=== PATIENT | male | born 1955 | race American Indian/Alaskan Native ===

== ENCOUNTER 2018-07-27 18:11 | Inpatient (IN) | payer MEDICAID ==
[2018-07-27] MEDS ORDERED: Sodium Chloride 0.9% 1,000 ML IV STA (18:30)
--- NOTE | 2018-07-27 18:33 | ED PDOC ---
HPI: Altered Mental Status Time Seen by Provider: 07/27/18 18:22 Chief Complaint (Nursing): Altered Mental Status History Per: EMS Onset/Duration Of Symptoms: Unknown Current Symptoms Are (Timing): Still Present Description Of Symptoms: Confused Usual Baseline: Unknown Exacerbating Factor(s): Unknown Severity: Moderate Additional Complaint(s): Brought by EMS after pt was found wandering at [place]. Pt does not know how he got to train station. Denies head injury or fall. Denies headache or dizziness.. Denies chest pain or palpitations. Past Medical History Vital Signs: Last Vital Signs Temp 98.9 F 07/27/18 18:12 Pulse 125 H 07/27/18 18:12 Resp 16 07/27/18 18:12 BP 164/96 H 07/27/18 18:12 Pulse Ox 98 07/27/18 18:12 - Medical History PMH: Diabetes - Family History Family History: States: Unknown Family Hx - Allergies Allergies/Adverse Reactions: Allergies Allergy/AdvReac Type Severity Reaction Status Date / Time No Known Allergies Allergy Verified 07/27/18 18:12 Review of Systems ROS Statement: Except As Marked, All Systems Reviewed And Found Negative Physical Exam - Reviewed Nursing Documentation Reviewed: Yes Vital Signs Reviewed: Yes - Physical Exam Appears: Positive for: Non-toxic, No Acute Distress Head Exam: Positive for: ATRAUMATIC, NORMAL INSPECTION, NORMOCEPHALIC Skin: Positive for: Normal Color, Warm, DRY Eye Exam: Positive for: EOMI, Normal appearance, PERRL ENT: Positive for: Normal ENT Inspection Neck: Positive for: Normal, Painless ROM Cardiovascular/Chest: Positive for: Regular Rate, Rhythm Respiratory: Positive for: CNT, Normal Breath Sounds Gastrointestinal/Abdominal: Positive for: Normal Exam, Soft Back: Positive for: Normal Inspection Extremity: Positive for: Normal ROM Neurologic/Psych: Positive for: Oriented (x1). Negative for: Alert (Lethargic, arousable), Motor/Sensory Deficits - ECG O2 Sat by Pulse Oximetry: 98 Disposition - Clinical Impression Clinical Impression: Altered mental status - Patient ED Disposition Is Patient to be Admitted: Transfer of Care - Disposition Disposition: Transfer of Care Disposition Time: 19:00 Condition: FAIR Forms: [employer] (Malagasy) Patient Signed Over To: Yessica Yanez
[2018-07-27 19:11] LABS: BASO % 0.6 % (0.0-2.0); EOS # 0.1 K/uL (0.0-0.7); HEMOGLOBIN 13.5 g/dL (12.0-18.0); LYMPH % 13.3 % (20.0-40.0); MEAN CELL VOLUME 91.3 fl (80.0-94.0); MEAN CORPUSCULAR HEMOGLOBIN 29.7 pg (27.0-31.0); MEAN CORPUSCULAR HGB CONC 32.5 g/dL (33.0-37.0); MEAN PLATELET VOLUME 9.7 fl (7.2-11.7); MONO % 12.7 % (0.0-10.0); NEUT # 5.6 K/uL (1.8-7.0); NEUT % 72.4 % (50.0-75.0); RBC 4.55 Mil/uL (4.40-5.90); RED CELL DISTRIBUTION WIDTH 14.1 % (11.5-14.5); WHITE BLOOD COUNT 7.7 K/uL (4.8-10.8)
[2018-07-27 19:23] LABS: BLOOD UREA NITROGEN 18 mg/dl (9-20); GFR NON-AFRICAN AMERICAN > 60
[2018-07-27 19:24] LABS: ALB/GLOB RATIO 1.2 (1.0-2.1); ALBUMIN 4.3 g/dL (3.5-5.0); ALT/SGPT 34 U/L (21-72); AST/SGOT 71 U/L (17-59)
--- NOTE | 2018-07-27 20:35 | ED PDOC ---
- Laboratory Results Result Diagrams: 07/27/18 19:07 07/27/18 19:07 - ECG ECG: Positive for: Interpreted By Me ECG Rhythm: Positive for: Normal QRS, Normal ST Segment, Atrial Fibrillation Rate: 125 O2 Sat by Pulse Oximetry: 100 (RA) Pulse Ox Interpretation: Normal - Critical Care Total Time (In Min): 30 Medical Decision Making Medical Decision Making: Time: 19:00 Patient was endorsed to me by Dr. Jennings pending CT Head and labs. EKG with Afib RVR Started on cardizem drip 22:32 CT head FINDINGS: BRAIN Chronic periventricular and subcortical microvascular disease is seen. Encephalomalacia involving right occipital lobe, compatible with an old infarct. VENTRICLES: There is generalized parenchymal atrophy noted as demonstrated by symmetrical dilatation of ventricles and sulci. ORBITS: The orbits are unremarkable. SINUSES AND MASTOIDS: The paranasal sinuses and mastoid air cells are clear. BONES: No fracture. SOFT TISSUES: Unremarkable. MISCELLANEOUS: No acute intracranial pathology. IMPRESSION: 1. There is generalized parenchymal atrophy noted as demonstrated by symmetrical dilatation of ventricles and sulci. 2. Chronic periventricular and subcortical microvascular disease is seen. 3. Encephalomalacia involving right occipital lobe, compatible with an old infarct. 4. No acute intracranial pathology. Scribe Attestation: Documented by Maria Teresa Acosta, acting as a scribe for Yessica Yanez MD. Provider Scribe Attestation: All medical record entries made by the Scribe were at my direction and personally dictated by me. I have reviewed the chart and agree that the record accurately reflects my personal performance of the history, physical exam, medical decision making, and the department course for this patient. I have also personally directed, reviewed, and agree with the discharge instructions and disposition. Disposition Discussed With Dr.: Diego Howell Doctor Will See Patient In The Hospital Counseled Patient/Family Regarding: Studies Performed, Diagnosis - Clinical Impression Clinical Impression: Altered mental status, Heroin abuse, Atrial fibrillation - POA Present On Arrival: None - Disposition Disposition: Hospitalized as Observation Patient Disposition Time: 23:00 Condition: FAIR
[2018-07-27 21:50] LABS: INR 1.1; PARTIAL THROMBOPLASTIN TIME 26.5 Seconds (25.6-37.1); PROTHROMBIN TIME 12.5 Seconds (9.8-13.1)
[2018-07-27] MEDS ORDERED: Enoxaparin 100 mg Syringe SC STA (23:03)
[2018-07-28 04:18] LABS: BARBITURATES, UR NEGATIVE (NEGATIVE); BENZODIAZEPINES, UR NEGATIVE (NEGATIVE); OPIATES, UR POSITIVE (NEGATIVE); PHENCYCLIDINE, UR NEGATIVE (NEGATIVE)
--- NOTE | 2018-07-28 07:57 | CARD ---
APPROVED REPORT Date of service: 07/27/2018 EKG Measurement Heart [id number] <Conclusion> Atrial fibrillation with rapid ventricular response Left axis deviation Minimal voltage criteria for LVH, may be normal variant Abnormal ECG
--- NOTE | 2018-07-28 08:02 | CARD ---
APPROVED REPORT Date of service: 07/28/2018 EKG Measurement Heart [id number] <Conclusion> Normal sinus rhythm Left anterior fascicular block Moderate voltage criteria for LVH, may be normal variant Abnormal ECG
--- NOTE | 2018-07-28 08:04 | CARD ---
APPROVED REPORT Date of service: 07/28/2018 EKG Measurement Heart [id number] <Conclusion> Sinus bradycardia Left anterior fascicular block Moderate voltage criteria for LVH, may be normal variant Nonspecific ST and T wave abnormality Abnormal ECG
[2018-07-28 08:06] LABS: MEAN CELL VOLUME 91.8 fl (80.0-94.0); MEAN CORPUSCULAR HEMOGLOBIN 29.7 pg (27.0-31.0); MEAN CORPUSCULAR HGB CONC 32.4 g/dL (33.0-37.0); RBC 3.84 Mil/uL (4.40-5.90); RED CELL DISTRIBUTION WIDTH 13.5 % (11.5-14.5); WHITE BLOOD COUNT 5.6 K/uL (4.8-10.8)
[2018-07-28 08:14] LABS: HEMOGLOBIN 11.4 g/dL (12.0-18.0)
[2018-07-28 08:46] LABS: ALBUMIN 2.9 g/dL (3.5-5.0); ALT/SGPT 36 U/L (21-72); AST/SGOT 39 U/L (17-59); BLOOD UREA NITROGEN 11 mg/dl (9-20); CALCIUM 8.4 mg/dL (8.4-10.2); GFR NON-AFRICAN AMERICAN > 60
--- NOTE | 2018-07-28 08:46 | CT ---
Date of service: 07/27/2018 PROCEDURE: CT HEAD WITHOUT CONTRAST. HISTORY: r/o bleed COMPARISON: None available. TECHNIQUE: Axial computed tomography images were obtained through the head/brain without intravenous contrast. Radiation dose: Total exam DLP = 844.62 mGy-cm. This CT exam was performed using one or more of the following dose reduction techniques: Automated exposure control, adjustment of the mA and/or kV according to patient size, and/or use of iterative reconstruction technique. FINDINGS: HEMORRHAGE: No intracranial hemorrhage. BRAIN: No mass effect or edema. Mild age-appropriate atrophy.. There is moderate periventricular white matter lucency with patchy deep white matter lucency as well, consistent with chronic microvascular white matter ischemic change. Small area of encephalomalacia change in the right occipital lobe, nonspecific. Small old bilateral basal ganglia lacunar infarcts are noted. There is no evidence of acute infarct. VENTRICLES: Unremarkable. No hydrocephalus. CALVARIUM: Unremarkable. PARANASAL SINUSES: Unremarkable as visualized. No significant inflammatory changes. MASTOID AIR CELLS: Unremarkable as visualized. No inflammatory changes. OTHER FINDINGS: None. IMPRESSION: No intracranial mass, hemorrhage or evidence of acute infarct. Small focal encephalomalacia in the right occipital lobe common nonspecific. Mild age appropriate atrophy. Chronic microvascular white matter ischemic change. Small old bilateral basal ganglia lacunar infarcts. The preliminary findings for this examination were reported by [facility] at 10:32 p.m. on 07/27/2018. There is concurrence of this report with the preliminary findings.
--- NOTE | 2018-07-28 09:48 | RAD ---
Date of service: 07/27/2018 HISTORY: cough COMPARISON: No prior. FINDINGS: LUNGS: No active pulmonary disease. PLEURA: No significant pleural effusion identified, no pneumothorax apparent. CARDIOVASCULAR: No aortic atherosclerotic calcification present. Normal cardiac size. No pulmonary vascular congestion. OSSEOUS STRUCTURES: No significant abnormalities. VISUALIZED UPPER ABDOMEN: Normal. OTHER FINDINGS: None. IMPRESSION: No active disease.
[2018-07-28] MEDS ORDERED: Potassium Chloride 20 mEq ER Tab PO ONE (09:57)
--- NOTE | 2018-07-28 13:14 | CP.PCM.HP ---
<Riky Alcantar - Last Filed: 07/28/18 17:13> History of Present Illness - History of Present Illness History of Present Illness: Pt is a 63 y/o homeless male with hx of IDDM, Atrial Fibrillation on coumadin, and active Heroine abuserr, brought to hospital after being found wandering the train station confused. Pt has no memory of what happened but admits he was likely on drugs. In ED was noted to be Tachcyardiac, EKG Afib w/ RVR, started on Cardizem drip and HR stabilized overnight. PMD: none Present on Admission - Present on Admission Any Indicators Present on Admission: No Past Patient History - Past Medical History & Family History Past Medical History?: Yes - Past Social History Smoking Status: Former Smoker - CARDIAC Hx Cardiac Disorders: Yes - PULMONARY Hx Respiratory Disorders: No - NEUROLOGICAL Hx Neurological Disorder: No - HEENT Hx HEENT Problems: No - RENAL Hx Chronic Kidney Disease: No - ENDOCRINE/METABOLIC Hx Endocrine Disorders: Yes Hx Diabetes Mellitus Type 1: Yes - HEMATOLOGICAL/ONCOLOGICAL Hx Blood Disorders: No - INTEGUMENTARY Hx Dermatological Problems: No - MUSCULOSKELETAL/RHEUMATOLOGICAL Hx Musculoskeletal Disorders: No Hx Falls: Yes - GASTROINTESTINAL Hx Gastrointestinal Disorders: No - GENITOURINARY/GYNECOLOGICAL Hx Genitourinary Disorders: No - PSYCHIATRIC Hx Psychophysiologic Disorder: Yes Hx Substance Use: Yes - SURGICAL HISTORY Hx Surgeries: Yes Hx Herniorrhaphy: Yes - ANESTHESIA Hx Anesthesia: Yes Hx Anesthesia Reactions: No Hx Malignant Hyperthermia: No Has any member of the family had a problem w/ anesthesia?: No Meds Allergies/Adverse Reactions: Allergies Allergy/AdvReac Type Severity Reaction Status Date / Time No Known Allergies Allergy Verified 07/27/18 18:12 Physical Exam - Constitutional Appears: No Acute Distress - Head Exam Head Exam: NORMOCEPHALIC - Eye Exam Eye Exam: Normal appearance - ENT Exam ENT Exam: Mucous Membranes Moist - Respiratory Exam Respiratory Exam: Clear to Auscultation Bilateral. absent: Rales, Wheezes - Cardiovascular Exam Cardiovascular Exam: REGULAR RHYTHM, +S1, +S2 - GI/Abdominal Exam GI & Abdominal Exam: Normal Bowel Sounds - Extremities Exam Extremities exam: Negative for: pedal edema - Back Exam Back exam: NORMAL INSPECTION - Neurological Exam Neurological exam: Alert, Oriented x3 - Psychiatric Exam Psychiatric exam: Flat Affect, Normal Affect - Skin Skin Exam: Normal Color Results - Vital Signs Recent Vital Signs: Last Vital Signs Temp 99.8 F H 07/28/18 12:37 Pulse 70 07/28/18 12:37 Resp 18 07/28/18 12:37 BP 129/69 07/28/18 12:37 Pulse Ox 97 07/28/18 12:37 - Labs Result Diagrams: 07/28/18 07:45 07/28/18 07:45 Labs: Laboratory Results - last 24 hr 07/27/18 07/27/18 07/27/18 18:15 19:07 19:07 WBC 7.7 RBC 4.55 Hgb 13.5 Hct 41.6 MCV 91.3 MCH 29.7 MCHC 32.5 L RDW 14.1 Plt Count 187 MPV 9.7 Neut % (Auto) 72.4 Lymph % (Auto) 13.3 L [place] % (Auto) 12.7 H Eos % (Auto) 1.0 Baso % (Auto) 0.6 Neut # (Auto) 5.6 Lymph # (Auto) 1.0 [place] # (Auto) 1.0 H Eos # (Auto) 0.1 Baso # (Auto) 0.0 PT INR APTT Sodium 138 Potassium 4.9 Chloride 102 Carbon Dioxide 22 Anion Gap 19 BUN 18 Creatinine 0.9 Est GFR ( Amer) > 60 Est GFR (Non-Af Amer) > 60 POC Glucose (mg/dL) 150 H Random Glucose 156 H Calcium 9.0 Total Bilirubin 1.0 AST 71 H ALT 34 Alkaline Phosphatase 122 Troponin I 0.0240 NT-Pro-B Natriuret Pep Total Protein 7.9 Albumin 4.3 Globulin 3.6 Albumin/Globulin Ratio 1.2 Urine Opiates Screen Urine Methadone Screen Ur Barbiturates Screen Ur Phencyclidine Scrn Ur Amphetamines Screen U Benzodiazepines Scrn U Oth Cocaine Metabols U Cannabinoids Screen Alcohol, Quantitative < 10 07/27/18 07/28/18 07/28/18 21:00 03:42 03:45 WBC RBC Hgb Hct MCV MCH MCHC RDW Plt Count MPV Neut % (Auto) Lymph % (Auto) [place] % (Auto) Eos % (Auto) Baso % (Auto) Neut # (Auto) Lymph # (Auto) [place] # (Auto) Eos # (Auto) Baso # (Auto) PT 12.5 INR 1.1 APTT 26.5 Sodium Potassium Chloride Carbon Dioxide Anion Gap BUN Creatinine Est GFR ( Amer) Est GFR (Non-Af Amer) POC Glucose (mg/dL) Random Glucose Calcium Total Bilirubin AST ALT Alkaline Phosphatase Troponin I NT-Pro-B Natriuret Pep 330 Total Protein Albumin Globulin Albumin/Globulin Ratio Urine Opiates Screen Positive H Urine Methadone Screen Negative Ur Barbiturates Screen Negative Ur Phencyclidine Scrn Negative Ur Amphetamines Screen Negative U Benzodiazepines Scrn Negative U Oth Cocaine Metabols Negative U Cannabinoids Screen Negative Alcohol, Quantitative 07/28/18 07/28/18 07/28/18 05:18 07:45 07:45 WBC 5.6 RBC 3.84 L Hgb 11.4 L D Hct 35.2 MCV 91.8 MCH 29.7 MCHC 32.4 L RDW 13.5 Plt Count 170 MPV Neut % (Auto) Lymph % (Auto) [place] % (Auto) Eos % (Auto) Baso % (Auto) Neut # (Auto) Lymph # (Auto) [place] # (Auto) Eos # (Auto) Baso # (Auto) PT INR APTT Sodium 136 Potassium 3.4 L Chloride 103 Carbon Dioxide 26 Anion Gap 10 BUN 11 Creatinine 0.7 L Est GFR ( Amer) > 60 Est GFR (Non-Af Amer) > 60 POC Glucose (mg/dL) 114 H Random Glucose 119 H Calcium 8.4 Total Bilirubin 1.0 AST 39 ALT 36 Alkaline Phosphatase 97 Troponin I NT-Pro-B Natriuret Pep Total Protein 6.0 L Albumin 2.9 L D Globulin 3.1 Albumin/Globulin Ratio 1.0 Urine Opiates Screen Urine Methadone Screen Ur Barbiturates Screen Ur Phencyclidine Scrn Ur Amphetamines Screen U Benzodiazepines Scrn U Oth Cocaine Metabols U Cannabinoids Screen Alcohol, Quantitative 07/28/18 11:18 WBC RBC Hgb Hct MCV MCH MCHC RDW Plt Count MPV Neut % (Auto) Lymph % (Auto) [place] % (Auto) Eos % (Auto) Baso % (Auto) Neut # (Auto) Lymph # (Auto) [place] # (Auto) Eos # (Auto) Baso # (Auto) PT INR APTT Sodium Potassium Chloride Carbon Dioxide Anion Gap BUN Creatinine Est GFR ( Amer) Est GFR (Non-Af Amer) POC Glucose (mg/dL) 226 H Random Glucose Calcium Total Bilirubin AST ALT Alkaline Phosphatase Troponin I NT-Pro-B Natriuret Pep Total Protein Albumin Globulin Albumin/Globulin Ratio Urine Opiates Screen Urine Methadone Screen Ur Barbiturates Screen Ur Phencyclidine Scrn Ur Amphetamines Screen U Benzodiazepines Scrn U Oth Cocaine Metabols U Cannabinoids Screen Alcohol, Quantitative Assessment & Plan - Assessment and Plan (Free Text) Assessment: Pt is a 63 y/o homeless male with hx of IDDM, Atrial Fibrillation on coumadin, and active Heroine abuserr, brought to hospital [place]. Pt has no memory of what happened but admits he was likely on drugs. In ED was noted to be Tachcyardiac, EKG Afib w/ RVR, started on Cardizem drip and HR stabilized overnight. AMS -Resolved, likely due to drug intoxication, opiates in urine -Counseled on cessation today Afibb w/ RVR -Resolved -Cardizem drip -Cardiology consulted IDDM -No medication with patient -Take insulin -Accuchecks stable -f/U A1C Discussed case with Dr. Howell <Diego Howell - Last Filed: 07/29/18 12:10> Results - Vital Signs Recent Vital Signs: Last Vital Signs Temp 98.4 F 07/29/18 08:02 Pulse 76 07/29/18 11:21 Resp 18 07/29/18 08:02 BP 148/74 07/29/18 11:21 Pulse Ox 98 07/29/18 08:02 - Labs Result Diagrams: 07/29/18 04:25 07/29/18 04:25 Labs: Laboratory Results - last 24 hr 07/28/18 07/28/18 07/28/18 15:49 16:02 16:02 WBC RBC Hgb Hct MCV MCH MCHC RDW Plt Count MPV Neut % (Auto) Lymph % (Auto) [place] % (Auto) Eos % (Auto) Baso % (Auto) Neut # (Auto) Lymph # (Auto) [place] # (Auto) Eos # (Auto) Baso # (Auto) D-Dimer, Quantitative 371 H Sodium Potassium Chloride Carbon Dioxide Anion Gap BUN Creatinine Est GFR ( Amer) Est GFR (Non-Af Amer) POC Glucose (mg/dL) 158 H Random Glucose Hemoglobin A1c Calcium Phosphorus Magnesium Total Bilirubin AST ALT Alkaline Phosphatase Total Protein Albumin Globulin Albumin/Globulin Ratio Triglycerides Cholesterol LDL Cholesterol Direct HDL Cholesterol Free T4 TSH 3rd Generation 0.27 L 07/28/18 07/29/18 07/29/18 22:39 04:25 04:25 WBC 4.7 L RBC 4.07 L Hgb 11.9 L Hct 36.6 MCV 90.1 MCH 29.2 MCHC 32.4 L RDW 13.5 Plt Count 138 MPV 10.6 Neut % (Auto) 61.9 Lymph % (Auto) 19.1 L [place] % (Auto) 15.9 H Eos % (Auto) 2.5 Baso % (Auto) 0.6 Neut # (Auto) 2.9 Lymph # (Auto) 0.9 L [place] # (Auto) 0.7 Eos # (Auto) 0.1 Baso # (Auto) 0.0 D-Dimer, Quantitative Sodium 139 Potassium 3.7 Chloride 104 Carbon Dioxide 28 Anion Gap 11 BUN 10 Creatinine 0.8 Est GFR ( Amer) > 60 Est GFR (Non-Af Amer) > 60 POC Glucose (mg/dL) 154 H Random Glucose 155 H Hemoglobin A1c Calcium 8.6 Phosphorus 2.3 L Magnesium 1.8 Total Bilirubin 0.5 AST 25 ALT 28 Alkaline Phosphatase 98 Total Protein 6.3 Albumin 3.0 L Globulin 3.3 Albumin/Globulin Ratio 0.9 L Triglycerides 60 Cholesterol 123 LDL Cholesterol Direct 69 HDL Cholesterol 43 Free T4 TSH 3rd Generation 07/29/18 07/29/18 07/29/18 04:25 05:13 10:29 WBC RBC Hgb Hct MCV MCH MCHC RDW Plt Count MPV Neut % (Auto) Lymph % (Auto) [place] % (Auto) Eos % (Auto) Baso % (Auto) Neut # (Auto) Lymph # (Auto) [place] # (Auto) Eos # (Auto) Baso # (Auto) D-Dimer, Quantitative Sodium Potassium Chloride Carbon Dioxide Anion Gap BUN Creatinine Est GFR ( Amer) Est GFR (Non-Af Amer) POC Glucose (mg/dL) 143 H Random Glucose Hemoglobin A1c 6.8 H Calcium Phosphorus Magnesium Total Bilirubin AST ALT Alkaline Phosphatase Total Protein Albumin Globulin Albumin/Globulin Ratio Triglycerides Cholesterol LDL Cholesterol Direct HDL Cholesterol Free T4 1.37 TSH 3rd Generation 07/29/18 11:10 WBC RBC Hgb Hct MCV MCH MCHC RDW Plt Count MPV Neut % (Auto) Lymph % (Auto) [place] % (Auto) Eos % (Auto) Baso % (Auto) Neut # (Auto) Lymph # (Auto) [place] # (Auto) Eos # (Auto) Baso # (Auto) D-Dimer, Quantitative Sodium Potassium Chloride Carbon Dioxide Anion Gap BUN Creatinine Est GFR ( Amer) Est GFR (Non-Af Amer) POC Glucose (mg/dL) 217 H Random Glucose Hemoglobin A1c Calcium Phosphorus Magnesium Total Bilirubin AST ALT Alkaline Phosphatase Total Protein Albumin Globulin Albumin/Globulin Ratio Triglycerides Cholesterol LDL Cholesterol Direct HDL Cholesterol Free T4 TSH 3rd Generation Attending/Attestation - Attestation I have personally seen and examined this patient.: Yes I have fully participated in the care of the patient.: Yes I have reviewed all pertinent clinical information: Yes
[2018-07-28] MEDS: Enoxaparin 100 mg Syringe SC SCH (20:32)
--- NOTE | 2018-07-29 03:23 | CON ---
DATE: 07/28/2018 REASON FOR CONSULTATION: Rapid atrial fibrillation. HISTORY OF PRESENT ILLNESS: The patient is a 63-year-old male who is homeless, [place], was brought by the EMS, and was found to be in rapid atrial fibrillation. The patient is unaware of any prior cardiac history. The patient was confused upon his presentation in the emergency room. The patient was found to be in rapid atrial fibrillation at a heart rate of 125 beats per minute. required intravenous Cardizem infusion, subsequently converted to sinus rhythm. The patient is unaware of any prior history of stroke or heart attack. SOCIAL HISTORY: Nonsmoker and nondrinker. He is homeless, stays in a [place] [facility]. He has family, but he does not get along with them. MEDICATIONS: The patient was given 20 mg at a single dose and was on Cardizem infusion yesterday at 5 mg per hour. The patient did receive K-Airam 20 mEq at once a day and one stat dose of Lovenox 100 mg subcutaneously. The patient has no home meds. PHYSICAL EXAMINATION: GENERAL: The patient is a middle-aged male who does not appear to be in acute distress. VITAL SIGNS: Blood pressure 129/69, heart rate 70, temperature 99.8, and respirations 18. HEENT: Normocephalic. CHEST: Clear. HEART: S1 and S2, regular. EXTREMITIES: No edema. LABORATORY DATA: SMA-7 is within normal limits except for potassium 3.4, creatinine 0.7, and glucose 119. One set of troponin 0.024. PT, PTT, INR all within normal limits. Today's hemoglobin and hematocrit 11.4 and 35.2. White count and platelet count are within normal limits. Urine drug screen is positive for opiates. Alcohol level is less than 10. A CT scan without contrast, no intracranial mass, hemorrhage, or evidence of acute infarct. Small focal encephalomalacia in the right occipital lobe, mild age-appropriate atrophy, chronic microvascular white matter ischemic changes, small old bilateral basal ganglia lacunar infarct. Chest x-ray revealed mild cardiomegaly and prominent bronchovascular markings. No definite infiltrate or effusion. ASSESSMENT: 1. Paroxysmal atrial fibrillation. 2. Altered mental status. 3. Hypokalemia. 4. Diabetes mellitus. RECOMMENDATIONS: 1. Continue current telemetry monitoring. 2. Start subcutaneous Lovenox. 3. Obtain echocardiogram, serum D-dimer, and TSH level. 4. I recommend social service to evaluate the patient regarding placement problem. Carlos Luna MD
[2018-07-29 05:48] LABS: BASO % 0.6 % (0.0-2.0); EOS # 0.1 K/uL (0.0-0.7); EOS % 2.5 % (0.0-4.0); HEMOGLOBIN 11.9 g/dL (12.0-18.0); LYMPH # 0.9 K/uL (1.0-4.3); LYMPH % 19.1 % (20.0-40.0); MEAN CELL VOLUME 90.1 fl (80.0-94.0); MEAN CORPUSCULAR HEMOGLOBIN 29.2 pg (27.0-31.0); MEAN CORPUSCULAR HGB CONC 32.4 g/dL (33.0-37.0); MEAN PLATELET VOLUME 10.6 fl (7.2-11.7); MONO # 0.7 K/uL (0.0-0.8); MONO % 15.9 % (0.0-10.0); NEUT # 2.9 K/uL (1.8-7.0); NEUT % 61.9 % (50.0-75.0); NRBC % 0.1 % (0.0-0.0); RBC 4.07 Mil/uL (4.40-5.90); RED CELL DISTRIBUTION WIDTH 13.5 % (11.5-14.5); WHITE BLOOD COUNT 4.7 K/uL (4.8-10.8)
[2018-07-29 05:57] LABS: LDL CHOLESTEROL 69 mg/dL (0-129)
[2018-07-29 06:17] LABS: ALB/GLOB RATIO 0.9 (1.0-2.1); ALT/SGPT 28 U/L (21-72); AST/SGOT 25 U/L (17-59); BLOOD UREA NITROGEN 10 mg/dl (9-20); CALCIUM 8.6 mg/dL (8.4-10.2); GFR NON-AFRICAN AMERICAN > 60; HDL CHOLESTEROL 43 MG/DL (30-70)
--- NOTE | 2018-07-29 08:17 | CP.PCM.PN ---
<Riky Alcantar - Last Filed: 07/29/18 14:37> Subjective - Date & Time of Evaluation Date of Evaluation: 07/29/18 Time of Evaluation: 09:00 - Subjective Subjective: HR dropped to 50's overnight. Cardizem held. HR remained normal thereafter. No other acute events. Pt seen and examined this morning. No complaints. Discussed plan. Will await further recommendations from Early Childhood Education Instructor. Objective - Vital Signs/Intake and Output Vital Signs (last 24 hours): Temp Pulse Resp BP Pulse Ox 98.4 F 72 18 152/80 H 98 07/29/18 08:02 07/29/18 08:02 07/29/18 08:02 07/29/18 08:02 07/29/18 08:02 - Medications Medications: Current Medications Enoxaparin Sodium (Lovenox) 100 mg SC Q12 ALTAGRACIA; Protocol Last Admin: 07/28/18 20:32 Dose: 100 mg - Labs Labs: 07/29/18 04:25 07/29/18 04:25 PT 12.5 Seconds (9.8-13.1) 07/27/18 21:00 INR 1.1 07/27/18 21:00 APTT 26.5 Seconds (25.6-37.1) 07/27/18 21:00 - Constitutional Appears: No Acute Distress - Head Exam Head Exam: NORMAL INSPECTION - Eye Exam Eye Exam: Normal appearance - ENT Exam ENT Exam: Mucous Membranes Moist - Respiratory Exam Respiratory Exam: Clear to Ausculation Bilateral - Cardiovascular Exam Cardiovascular Exam: REGULAR RHYTHM - GI/Abdominal Exam GI & Abdominal Exam: Normal Bowel Sounds - Extremities Exam Extremities Exam: Normal Capillary Refill, Normal Inspection. absent: Calf Tenderness, Pedal Edema - Neurological Exam Neurological Exam: Alert - Psychiatric Exam Psychiatric exam: Normal Affect. absent: Anxious - Skin Skin Exam: Normal Color Assessment and Plan - Assessment and Plan (Free Text) Assessment: Pt is a 63 y/o homeless male with hx of IDDM, Atrial Fibrillation on coumadin, and active Heroine abuserr, brought to hospital [place]. Pt has no memory of what happened but admits he was likely on drugs. In ED was noted to be Tachcyardiac, EKG Afib w/ RVR, started on Cardizem drip and HR stabilized overnight. AMS -Resolved, likely due to drug intoxication, opiates in urine Afibb w/ RVR -Resolved -Cardizem drip -Cardiology consulted- Echo, TSH, D Dimer ordered. Will await further rosio mmendations. -Echo pending -TSH low, f/u FT3 and FT4 levels ordered -D Dimer elevated; CTA negative for PE IDDM -No medication with patient -States he takes insulin at home. -A1C 6.8 -Will hold off on starting Metformin as patient received contrast today. Low dose sliding scale in place. -F/U lipid panel Discussed case with Dr. Howell <Diego Howell - Last Filed: 07/30/18 10:29> Objective - Vital Signs/Intake and Output Vital Signs (last 24 hours): Temp Pulse Resp BP Pulse Ox 98.1 F 80 20 144/79 98 07/30/18 07:46 07/30/18 09:22 07/30/18 07:46 07/30/18 09:22 07/30/18 07:46 - Medications Medications: Current Medications Dextrose (Dextrose 50% Inj) 0 ml IV STAT PRN; Protocol PRN Reason: Hypoglycemia Protocol Dextrose (Glutose 15) 0 gm PO ONCE PRN; Protocol PRN Reason: Hypoglycemia Protocol Enoxaparin Sodium (Lovenox) 100 mg SC Q12 ALTAGRACIA; Protocol Last Admin: 07/30/18 09:22 Dose: 100 mg Glucagon (Glucagen Diagnostic Kit) 0 mg IM STAT PRN; Protocol PRN Reason: Hypoglycemia Protocol Insulin Human Regular (Humulin R) 0 units SC ACHS ALTAGRACIA; Protocol Last Admin: 07/30/18 08:13 Dose: Not Given Lisinopril (Zestril) 20 mg PO DAILY ALTAGRACIA Last Admin: 07/30/18 09:22 Dose: 20 mg - Labs Labs: 07/29/18 04:25 07/29/18 04:25 PT 12.5 Seconds (9.8-13.1) 07/27/18 21:00 INR 1.1 07/27/18 21:00 APTT 26.5 Seconds (25.6-37.1) 07/27/18 21:00 Attending/Attestation - Attestation I have personally seen and examined this patient.: Yes I have fully participated in the care of the patient.: Yes I have reviewed all pertinent clinical information, including history, physical exam and plan: Yes
[2018-07-29] MEDS ORDERED: Dextrose 50% SYRINGE Inj (50 ml) IV PRN (08:23)
[2018-07-29] MEDS ORDERED: Glucagon Recombinant 1 mg Inj IM PRN (08:23)
[2018-07-29] MEDS: Enoxaparin 100 mg Syringe SC SCH ×2 (09:19→21:40)
--- NOTE | 2018-07-29 10:54 | CARD ---
APPROVED REPORT Date of service: 07/29/2018 EXAM: Two-dimensional and M-mode echocardiogram with Doppler and color Doppler. Other Information Quality : GoodRhythm : Atrial Fibrillation INDICATION Atrial Fibrillation 2D DIMENSIONS IVSd1.60 (0.7-1.1cm)LVDd4.01 (3.9-5.9cm) LVOT Diameter2.35 (1.8-2.4cm)PWd1.19 (0.7-1.1cm) IVSs2.40 (0.8-1.2cm)LVDs2.24 (2.5-4.0cm) FS (%) 44.2 %PWs1.74 (0.8-1.2cm) M-Mode DIMENSIONS Left Atrium (MM)3.58 (2.5-4.0cm)IVSd1.27 (0.7-1.1cm) Aortic Root3.83 (2.2-3.7cm)LVDd4.88 (4.0-5.6cm) Aortic Cusp Exc.2.43 (1.5-2.0cm)PWd1.27 (0.7-1.1cm) IVSs1.76 cmFS (%) 34 % LVDs3.20 (2.0-3.8cm)PWs1.82 cm Aortic Valve AoV Peak Arcirndn182.4cm/sAoV VTI26.7cmAO Peak GR.8mmHg LVOT Peak Zxlubcpo25.7cm/sLVOT VTI18.32cmAO Mean GR.5mmHg JANICE (VMAX)1.61dv6ZPS (VTI)1.32cm2 Mitral Valve MV E Vaxbvhbl35.4cm/sMV DECEL [id number] A Ygcsmyio35.4cm/s MV GJJ57zrX/A ratio0.6MVA (PHT)2.73cm2 TDI Lateral E' Peak V12.55cm/sMedial E' Peak V7.50cm/sE/Lateral E'4.0 E/Medial E'6.7 LEFT VENTRICLE The left ventricle is normal size. There is mild concentric left ventricular hypertrophy. The left ventricular systolic function is normal. The estimated ejection fraction is 55-60% No regional wall motion abnormalities noted.. Transmitral Doppler flow pattern is Grade I-abnormal relaxation pattern. No left ventricle thrombus noted on this study. There is no ventricular septal defect visualized. There is no left ventricular aneurysm. There is no mass noted in the left ventricle. RIGHT VENTRICLE The right ventricle is normal size. There is normal right ventricular wall thickness. The right ventricular systolic function is normal. ATRIA The left atrium size is normal. The right atrium size is normal. The interatrial septum is intact with no evidence for an atrial septal defect. AORTIC VALVE The aortic valve is normal in structure. No aortic regurgitation is present. There is no aortic valvular stenosis. There is no aortic valvular vegetation. MITRAL VALVE The mitral valve is normal in structure. There is no evidence of mitral valve prolapse. There is no mitral valve stenosis. There is no mitral valve regurgitation noted. TRICUSPID VALVE The tricuspid valve is normal in structure. There is no significant tricuspid valve regurgitation noted. There is no tricuspid valve prolapse or vegetation. There is no tricuspid valve stenosis. PULMONIC VALVE The pulmonary valve is normal in structure. There is no pulmonic valvular regurgitation. There is no pulmonic valvular stenosis. GREAT VESSELS The aortic root is normal in size. The ascending aorta is normal in size. The pulmonary artery is normal. The IVC is normal in size and collapses >50% with inspiration. PERICARDIAL EFFUSION There is no pericardial effusion. There is no pleural effusion. <Conclusion> There is mild concentric left ventricular hypertrophy. The estimated ejection fraction is 55-60% Transmitral Doppler flow pattern is Grade I-abnormal relaxation pattern. The left atrium size is normal. There is no significant tricuspid valve regurgitation noted. Mildldy abnormal global LV strain ( -17).
[2018-07-29] MEDS: Insulin Regular 100 units/ml SC SCH ×3 (11:24→22:00)
[2018-07-29] MEDS ORDERED: Sodium Chloride 0.9% 50 ML IV ONE (12:06)
[2018-07-29] MEDS ORDERED: Iodixanol 320 MG/ML 100 ML BOTTLE IV ONE (12:06)
--- NOTE | 2018-07-29 13:31 | CT ---
Date of service: 07/29/2018 PROCEDURE: CT Chest with contrast (Pulmonary Angiogram) HISTORY: r/o PE COMPARISON: None available. TECHNIQUE: Axial computed tomography images were obtained of the chest in the pulmonary arterial phase of enhancement. Coronal and sagittal reformatted images were created and reviewed. Intravenous contrast dose: Visipaque 320, 99 cc Radiation dose: Total exam DLP = 391.16 mGy-cm. This CT exam was performed using one or more of the following dose reduction techniques: Automated exposure control, adjustment of the mA and/or kV according to patient size, and/or use of iterative reconstruction technique. FINDINGS: PULMONARY ARTERIES: Unremarkable. No pulmonary embolism. AORTA: The ascending thoracic aorta is dilated to 4.4 cm decreasing to 3.8 cm at the anterior arch and 3.0 cm at the mid arch. No aortic atherosclerotic calcification or mural plaque present. Main pulmonary artery appears normal caliber overall. LUNGS: Central airways appear clear. No pulmonary mass or infiltrate. PLEURAL SPACES: Unremarkable. No effusion or pneumothorax. HEART: Mild cardiomegaly. No significant pericardial effusion. LYMPH NODES: No lymphadenopathy. BONES, CHEST WALL: Minimal anterior wedge compression fractures of T11 and T12 are identified of indeterminate age. OTHER FINDINGS: Bilateral renal cysts are incidentally captured in the upper abdomen. IMPRESSION: 1. No CT evidence of pulmonary embolus. 2. Mild ascending thoracic aortic aneurysm terminating anterior arch. 3. Mild cardiomegaly. No pleural or pericardial effusion. 4. No infiltrate bilaterally. No definitive pulmonary mass. 5. Minimal anterior wedge compression fractures of T11 and T12 are identified of indeterminate age. 6. Bilateral renal cysts incidentally captured in the upper abdomen.
[2018-07-29 16:12] LABS: HDL CHOLESTEROL 45 MG/DL (30-70)
[2018-07-29 16:22] LABS: LDL CHOLESTEROL 79 mg/dL (0-129)
--- NOTE | 2018-07-29 21:17 | PN ---
DATE: 07/29/2018 FOLLOWUP SUBJECTIVE: The patient has no recurrence of atrial fibrillation. He denies any chest pain. PHYSICAL EXAMINATION: VITAL SIGNS: Blood pressure 147/78, heart rate 66, temperature 98.5, respirations 20. HEENT: Normocephalic. CHEST: Clear. HEART: Heart sounds are irregular. EXTREMITIES: No edema. DIAGNOSTIC DATA: D-dimer was elevated and chest CT angio was performed, and the findings are: No evidence of acute pulmonary embolus. Mild ascending thoracic aneurysm terminating anterior arch. Mild cardiomegaly. No pleural or pericardial effusion. No infiltrate bilaterally. No definite pulmonary mass. Minimal anterior wedge compression or fracture of T11 and T12. Echocardiography study report revealed normal ejection fraction. TSH level is below normal at 0.27. Free T4 is 1.37. ASSESSMENT: 1. Paroxysmal atrial fibrillation. 2. Hypothyroidism. 3. Uncontrolled diabetes mellitus. 4. . RECOMMENDATIONS: Continue Zestril 20 mg once a day, subcutaneous Lovenox 100 mg twice a day. Obtain total T4 level and consult endocrine evaluation. Carlos Luna MD
[2018-07-30 07:46] VITALS: RESP 20; O2SAT 98
[2018-07-30] MEDS: Insulin Regular 100 units/ml SC SCH ×2 (08:13→12:49)
[2018-07-30] MEDS: Enoxaparin 100 mg Syringe SC SCH (09:22)
[2018-07-30 12:42] VITALS: BP 139/81; PULSE 54; TEMP 98.5
--- NOTE | 2018-08-01 08:55 | CON ---
DATE: 07/30/2018 ENDOCRINOLOGY CONSULT LOCATIONS: Room #408. HISTORY OF PRESENT ILLNESS: This is a 63-year-old male with known history of type 2 insulin-requiring diabetes and hypertension, presenting here with altered mental status and marked confusion, disorientation, and [place] and is being referred now for endocrine evaluation of both type 2 diabetes and possible hyperthyroidism as he presented here with rapid atrial fibrillation as noted. PAST MEDICAL HISTORY: As mentioned above, history of type 2 insulin-requiring diabetes, the patient at this time. History of hypertension and dyslipidemia, history of chronic atrial fibrillation and has been on Coumadin therapy previously, but apparently we are not sure whether he is still on the medications at this time. FAMILY HISTORY: Positive for hypertension and diabetes. SOCIAL HISTORY: The patient is an active heroin user with also ongoing nicotine dependence and drinks alcohol socially. He is actually currently homeless at this time as noted. PHYSICAL EXAMINATION: GENERAL: This is an overweight male, in no apparent distress. VITAL SIGNS: Blood pressure of 150/90, pulse of 110 beats per minute; irregular, temperature 98, respirations 20, height is 6 feet 1 inch, weight is 220 pounds. HEENT: Head: Normocephalic. Eyes: Anicteric with pink conjunctivae. Funduscopy not possible at this time. Ears, nose and throat otherwise normal. NECK: No overt thyromegaly or palpable nodules noted. HEART: Hyperdynamic precordium. S1 and S2 are rapid and irregular. LUNGS: Clear to auscultation. ABDOMEN: Flat, soft, with positive bowel sounds. EXTREMITIES: No peripheral edema. Pulses are +2 bilaterally. LABORATORY DATA: His glucose levels have ranged from 117-143 and 217 mg/dL. His latest thyroid studies done initially showed a TSH of 0.27, with a free T4 of 1.37. His chemistries show BUN of 10, sodium 139, potassium 3.7, chloride 104, CO2 28, glucose 155, and creatinine 0.8. His A1c is 6.8%. ASSESSMENT: This is a 63-year-old male with known history of type 2 insulin-requiring diabetes, apparently off insulin therapy at this time with near optimal metabolic control and previously being on also oral hypoglycemic therapy. There is also the possibility of having a thyroid dysfunction, presenting here with rapid atrial fibrillation, and his evaluation of the metabolic indices for the thyroid studies showed the presence of subclinical hyperthyroidism with a suppressed TSH and normal free T4 as noted and it is most likely related to underlying autoimmune thyroiditis. PLAN OF MANAGEMENT: We will hold off thyroid pharmacotherapy pending the completion of the comprehensive thyroid hormonal profile as it will be ordered in detail. We will add a total T4 or thyroxine level with a TSH value with a hemoglobin A1c to be done to ascertain his prior glycemic control and serial chemistries will be obtained accordingly. We will follow. Maddie Osorio MD
== END 2018-07-30 14:06 | disposition left against medical advice (07) | DRG 138 ==
LOC: H.ER 18:11 → H.ERHOLD 23:05 → H.TEL 07-28 04:30 → OBSVTOIN 07-29 14:59
PROVIDERS: ADMIT Family Medicine; ATTEND Family Medicine
DX: I48.0 Paroxysmal atrial fibrillation (principal); E05.90 Thyrotoxicosis, unspecified without thyrotoxic crisis or storm; E10.65 Type 1 diabetes mellitus with hyperglycemia; E87.6 Hypokalemia; F11.10 Opioid abuse, uncomplicated; Z59.0 Homelessness; Z79.01 Long term (current) use of anticoagulants; Z79.4 Long term (current) use of insulin; Z91.83 Wandering in diseases classified elsewhere; F19.129 Other psychoactive substance abuse with intoxication, unspecified; E06.3 Autoimmune thyroiditis; E78.5 Hyperlipidemia, unspecified; F17.200 Nicotine dependence, unspecified, uncomplicated; G93.89 Other specified disorders of brain; I10 Essential (primary) hypertension